=== PATIENT | female | born 1965 | race Caucasian/White ===

== ENCOUNTER → 2019-06-11 | Day surgery (SDC) | payer OTHER ==
[~2019-06-11] MED LIST: ACETAMINOPHEN 1000 MG/100 ML 100 ML IV ONE; DEXAMETHASONE SOD PHOS INJ 4 MG/ML VIAL ONE; FENTANYL CITRATE/PF 100MCG/2 ML INJ ONE; GABAPENTIN300 MG PO; KETOROLAC TROMETHAMINE 30 MG/ML VIAL ONE; LAMOTRIGINE25 MG PO; LIDOCAINE HCL 2% LOCAL INJ 5 ML SDV VIAL INJ ONE; MEPERIDINE HCL INJ 25 MG/ML VIAL ONE; MIDAZOLAM HCL 2 MG/2 ML VIAL ONE; ONDANSETRON HCL INJ 2MG/ML 2ML 2 MG/ML VIAL ONE; PHENYLEPHRINE HCL 1% 10 MG/ML VIAL ONE; PROPOFOL IV EMULSION 10 MG/ML 20 ML VIAL ONE; SERTRALINE HCL50 MG PO; SEVOFLURANE INHAL SOLN 250 ML PEN BTL ONE; SILVER NITRATE SWABS ONE
[2019-06-11 12:57] LABS: BASOPHILS # (AUTO) 0.1 (0.0-0.1); BASOPHILS % 0.6 % (0.0-1.0); EOSINOPHILS # (AUTO) 0.1 (0.0-0.4); EOSINOPHILS % 1.2 % (0.0-6.0); HEMATOCRIT 40.7 % (34.2-44.1); HEMOGLOBIN 13.3 g/dL (12.0-16.0); LYMPHOCYTES # (AUTO) 3.2 (1.0-3.2); LYMPHOCYTES % 34.4 % (18.0-39.1); MEAN CORPUSCULAR HEMOGLOBIN 29.2 pg (28-32); MEAN CORPUSCULAR HGB CONC 32.7 g/dL (31-35); MEAN CORPUSCULAR VOLUME 89.3 fL (81-99); MONOCYTES # (AUTO) 0.8 (0.2-0.8); MONOCYTES % 8.1 % (4.4-11.3); NEUTROPHILS # (AUTO) 5.1 (2.1-6.9); NEUTROPHILS % 55.5 % (38.7-80.0); PLATELET COUNT 375 x10e3/uL (140-360); RED BLOOD COUNT 4.56 x10e6/uL (3.6-5.1); RED CELL DISTRIBUTION WIDTH 12.7 % (11.7-14.4)
[2019-06-11 13:12] LABS: BILIRUBIN,URINE NEGATIVE (NEGATIVE); CLARITY,URINE SL CLOUDY (CLEAR); COLOR,URINE YELLOW (YELLOW); KETONES,URINE NEGATIVE (NEGATIVE); LEUKOCYTE ESTERASE ,URINE NEGATIVE (NEGATIVE); NITRITE,URINE NEGATIVE (NEGATIVE); PROTEIN,URINE DIPSTICK NEGATIVE (NEGATIVE); URINE UROBILINOGEN 0.2 mg/dL (0.2 - 1)
[2019-06-11 16:05] VITALS: BP 118/75
--- NOTE | 2019-06-11 21:40 | Operative Report ---
DATE OF PROCEDURE: 06/11/2019 SURGEON: Sukh Rodriguez MD PREOPERATIVE DIAGNOSES: Postmenopausal bleeding, rule out endometrial cancer, failed office endometrial biopsy. POSTOPERATIVE DIAGNOSES: Postmenopausal bleeding, rule out endometrial cancer, failed office endometrial biopsy. TITLE OF PROCEDURE: Hysteroscopy, dilatation and curettage. ANESTHESIA: General with Dr. Barker and Radha, title i assistant. INDICATION FOR THE OPERATION: The patient is a 53-year-old 3, para 0-0-3-0 with postmenopausal bleeding with polyp noted and symptoms of cramping and fatigue. Office endometrial biopsy was unsuccessful due to cervical stenosis. She is therefore taken to the operating room at this time for D and C, hysteroscopy to rule out endometrial cancer and to excise a possible endometrial polyp. FINDINGS OF SURGERY: There was a polyp versus neoplastic lesion on the anterior surface of the endometrial cavity. This was excised with curettage. The left ostium was not easily seen. The right ostium was not well seen, consistent with her history of salpingectomy from ectopic . She had bleeding after the curettage, which responded to suction curettage and packing. DESCRIPTION OF THE PROCEDURE: The patient was taken to the operating room, placed on the table in supine position. General anesthesia was administered. The patient was placed in the lithotomy position. The perineum was prepared and draped in the usual sterile manner. The bladder was drained by in and out catheterization. Pelvic exam revealed an 8-week size nodular uterus with no adnexal masses. A weighted speculum was placed in posterior vaginal wall. Then with the aid of a right angle retractor, the anterior lip of the cervix was grasped with single-tooth tenaculum. The endocervical canal was noted to be stenotic and it was dilated using Cordova dilators up to a #25. Then, hysteroscope was placed and we inspected the endometrial cavity, noted the ostium on the left side could not, quite get to see the ostium on the right side, and of note, there was a lesion on the anterior surface of the endometrium, which was either endometrial polyp versus neoplastic lesion. The rest of the endometrium was relatively atrophic. We tried to visualize the right ostium, but were not able to see it well. This was perhaps due to her history of ectopic with the tube excised completely. The left ostium was well seen. At this point, the hysteroscope was removed and we proceeded with curettage. Curettage was continued until I felt the entire polyp was removed and the uterine cry was felt on all four mack of the uterus. Curettage was continued, however, the patient's bleeding was significant and did not respond to further sharp curettage. Suction curettage was performed with a #8 suction curette. All the tissue was obtained and sent to pathology for definitive diagnosis. After the suction curettage, the bleeding decreased, however, did not stop completely, so the decision was made to pack the vagina in order to decrease the bleeding. This did appear to be successful after waiting for 10-15 minutes and noticed no significant heavy bleeding, just light spotting and at this point, everything except for the vaginal packing was removed from the vagina and the patient was stable. The only complication was bleeding after curettage, which responded to suction curettage. Estimated blood loss was 100 mL. The patient tolerated the procedure well, was transferred from the operating room to recovery room in stable condition. MD CHRIS Ugarte/EMILY /[id number]
== END | disposition home or self-care (01) ==
LOC: OR 11:59
PROVIDERS: ATTEND Obstetrics & Gynecology
DX: N95.0 Postmenopausal bleeding (principal); D26.1 Other benign neoplasm of corpus uteri; N94.10 Unspecified dyspareunia; R10.2 Pelvic and perineal pain; Z01.812 Encounter for preprocedural laboratory examination
CPT/HCPCS: 36415; 58558; 81003; 85025; 88305; 88342; 93005; J0131; J1100; J1885; J2001; J2175; J2250; J2370; J2405; J2704; J3010

== ENCOUNTER 2019-07-08 05:17 | Observation (INO) | payer OTHER ==
[2019-07-07 12:45] LABS: BASOPHILS # (AUTO) 0.1 (0.0-0.1); BASOPHILS % 0.7 % (0.0-1.0); EOSINOPHILS # (AUTO) 0.1 (0.0-0.4); EOSINOPHILS % 1.1 % (0.0-6.0); HEMATOCRIT 36.5 % (34.2-44.1); HEMOGLOBIN 11.5 g/dL (12.0-16.0); LYMPHOCYTES # (AUTO) 2.4 (1.0-3.2); LYMPHOCYTES % 32.5 % (18.0-39.1); MEAN CORPUSCULAR HEMOGLOBIN 28.6 pg (28-32); MEAN CORPUSCULAR HGB CONC 31.5 g/dL (31-35); MEAN CORPUSCULAR VOLUME 90.8 fL (81-99); MONOCYTES # (AUTO) 0.6 (0.2-0.8); MONOCYTES % 8.2 % (4.4-11.3); NEUTROPHILS # (AUTO) 4.3 (2.1-6.9); NEUTROPHILS % 57.1 % (38.7-80.0); PLATELET COUNT 386 x10e3/uL (140-360); RED BLOOD COUNT 4.02 x10e6/uL (3.6-5.1); RED CELL DISTRIBUTION WIDTH 12.8 % (11.7-14.4)
[2019-07-07 13:04] LABS: ALANINE AMINOTRANSFERASE 90 IU/L (0-55); ALBUMIN 3.6 g/dL (3.5-5.0); ALKALINE PHOSPHATASE 112 IU/L (40-150); BLOOD UREA NITROGEN 15 mg/dL (7-26); BUN/CREATININE RATIO 19 (6-25); CALCIUM 9.4 mg/dL (8.4-10.2); CARBON DIOXIDE 25 mmol/L (22-29); CHLORIDE 108 mmol/L (98-107); EST GLOMERULAR FILTRATION RATE > 60 ML/MIN (60-); GLUCOSE 94 mg/dL (74-118); SODIUM 141 mmol/L (136-145)
[2019-07-07 13:44] LABS: BILIRUBIN,URINE NEGATIVE (NEGATIVE); CLARITY,URINE HAZY (CLEAR); COLOR,URINE YELLOW (YELLOW); KETONES,URINE NEGATIVE (NEGATIVE); LEUKOCYTE ESTERASE ,URINE NEGATIVE (NEGATIVE); NITRITE,URINE NEGATIVE (NEGATIVE); PROTEIN,URINE DIPSTICK NEGATIVE (NEGATIVE); URINE UROBILINOGEN 0.2 mg/dL (0.2 - 1)
[~2019-07-08] VITALS: Ht 162.6 cm; Wt 81.7 kg
[~2019-07-08 05:17] MED LIST changes: -ACETAMINOPHEN 1000 MG/100 ML 100 ML IV ONE; -DEXAMETHASONE SOD PHOS INJ 4 MG/ML VIAL ONE; -FENTANYL CITRATE/PF 100MCG/2 ML INJ ONE; -KETOROLAC TROMETHAMINE 30 MG/ML VIAL ONE; -LIDOCAINE HCL 2% LOCAL INJ 5 ML SDV VIAL INJ ONE; -MEPERIDINE HCL INJ 25 MG/ML VIAL ONE; -MIDAZOLAM HCL 2 MG/2 ML VIAL ONE; -ONDANSETRON HCL INJ 2MG/ML 2ML 2 MG/ML VIAL ONE; -PHENYLEPHRINE HCL 1% 10 MG/ML VIAL ONE; -PROPOFOL IV EMULSION 10 MG/ML 20 ML VIAL ONE; -SEVOFLURANE INHAL SOLN 250 ML PEN BTL ONE; -SILVER NITRATE SWABS ONE
[2019-07-08] MEDS ORDERED: CEFAZOLIN SOD 1 GM/NS 50ML 100 ML IV ONE (05:44)
[2019-07-08] MEDS ORDERED: BUPIVACAINE 0.25%/EPI 30ML SDV INJ ONE (06:41)
[2019-07-08] MEDS ORDERED: ESTROGENS CONJUGATED VAGINAL CR 45 GM TUBE PV ONE (06:41)
[2019-07-08] MEDS: LACTATED RINGER'S 1,000 ML IV SCH ×3 (09:41→23:00)
[2019-07-08] MEDS ORDERED: DOCUSATE SODIUM 100 MG CAP PO PRN (09:45)
[2019-07-08] MEDS ORDERED: ONDANSETRON HCL INJ 2MG/ML 2ML 2 MG/ML VIAL IV PRN (09:45)
[2019-07-08] MEDS ORDERED: BISACODYL 10 MG SUPP PR PRN (09:45)
[2019-07-08] MEDS ORDERED: DIPHENHYDRAMINE HCL 25 MG CAP PO PRN (09:45)
[2019-07-08] MEDS ORDERED: HYDROMORPHONE 1MG/1ML INJ IV PRN (09:45)
[2019-07-08] MEDS ORDERED: ACETAMINOPHEN 325 MG TAB PO PRN (09:45)
[2019-07-08] MEDS ORDERED: ACETAMINOPHEN 1000 MG/100 ML IV ONE (09:47)
[2019-07-08] MEDS ORDERED: DEXAMETHASONE SOD PHOS INJ 4 MG/ML VIAL ONE (09:47)
[2019-07-08] MEDS ORDERED: LIDOCAINE HCL 2% LOCAL INJ 5 ML SDV VIAL INJ ONE (09:47)
[2019-07-08] MEDS ORDERED: PROPOFOL IV EMULSION 10 MG/ML 20 ML VIAL ONE (09:47)
[2019-07-08] MEDS ORDERED: SEVOFLURANE INHAL SOLN 250 ML PEN BTL ONE (09:47)
[2019-07-08] MEDS ORDERED: ROCURONIUM BROMIDE 10 MG/ML 5ML VIAL ONE (09:47)
[2019-07-08] MEDS ORDERED: ONDANSETRON HCL INJ 2MG/ML 2ML 2 MG/ML VIAL ONE ×2 (09:47→09:48)
[2019-07-08] MEDS ORDERED: MEPERIDINE HCL INJ 25 MG/ML VIAL ONE (10:00)
[2019-07-08] MEDS ORDERED: PROMETHAZINE HCL (IM) 25 MG/ML VIAL ONE (10:01)
[2019-07-08] MEDS ORDERED: METOCLOPRAMIDE HCL 10 MG/2ML VIAL ONE (10:47)
--- NOTE | 2019-07-08 11:00 | NUR ---
PT TO THE FLOOR FROM PACU. VITALS WNL. PT DENIES NEEDS AT THIS TIME.
[2019-07-08 11:30] VITALS: BP 117/72
[2019-07-08] MEDS: KETOROLAC TROMETHAMINE 30 MG/ML VIAL IV SCH ×2 (11:52→18:02)
[2019-07-08 12:18] VITALS: BP 138/86
[2019-07-08] MEDS ORDERED: CEFAZOLIN SOD 1 GM VIAL IV SCH (14:00)
[2019-07-08] MEDS: SIMETHICONE 80 MG CHEW PO SCH ×3 (14:19→20:50)
[2019-07-08] MEDS: CEFAZOLIN SOD 2 GM/D5W 50ML 50 ML IV SCH ×2 (14:20→21:30)
[2019-07-08 16:13] VITALS: BP 124/66
--- NOTE | 2019-07-08 16:18 | Operative Report ---
DATE OF PROCEDURE: 07/08/2019 SURGEON: Sukh Rodriguez MD PREOPERATIVE DIAGNOSIS: Complex endometrial hyperplasia with atypia. POSTOPERATIVE DIAGNOSES: Complex endometrial hyperplasia with atypia, pending pathology and massive omental adhesions. TITLE OF PROCEDURE: Total laparoscopic hysterectomy, bilateral oophorectomy, and lysis of adhesions. INSTRUCTOR LOOPING: Ugo Farley MD. ANESTHESIA: General with Rivera Ashby MD. INDICATIONS FOR THE OPERATION: The patient is a 53-year-old 3, para 0-0-3-0, with last menstrual period at age 50, who presented with postmenopausal bleeding. A D and C was done, which showed complex endometrial hyperplasia with atypia. She is therefore taken to the operating room at this time for laparoscopic hysterectomy. Secondary to the complex hyperplasia with atypia and very high risk for endometrial cancer, she does not have a hysterectomy. She is status post two ectopic pregnancies with laparotomy, so adhesions are anticipated prior to the surgery. FINDINGS OF SURGERY: There were massive adhesions of omentum to anterior abdominal wall, which were lysed laparoscopically. The ovaries were within normal limits. The uterus was 8-10 week size and mobile. There were few filmy adhesions to the uterus, but these were easily lysed. DESCRIPTION OF PROCEDURE: The patient was taken to the operating room, placed on the table in supine position. General anesthesia was administered. The patient was placed in the lithotomy position. The perineum was prepared and draped in the usual sterile manner. A Browning catheter was placed in the bladder for constant drainage. Pelvic exam revealed an 8-10 week size mobile uterus and no adnexal masses. A weighted speculum was placed in a posterior vaginal wall. Then with the aid of a right angle retractor, the anterior lip of the cervix was grasped with single-toothed tenaculum. Then, a medium size VCare cup was placed on the cervix with the tenaculum being removed. The uterus had been sounded to 7 cm. The balloon was placed into the uterus and inflated. The manipulator seem to be working very well and then colpotomy seal was placed over the manipulation device, inflated with 60 mL of saline, and then we proceeded to the laparoscopy. The spar machine operator changed gloves. A small incision was made just inferior to the umbilicus in the midline. The Veress needle was inserted through the incision into the peritoneal cavity. Pneumoperitoneum was created by insufflation of 4 L of carbon dioxide gas and a filling pressure of 8-10 mmHg. The Veress needle was removed and the trocar was inserted through the incision into the peritoneal cavity. The laparoscope was placed with confirmation that the peritoneal cavity had been entered. However, there were massive adhesions in the lower anterior abdominal wall and therefore two trocars were placed on the right and left side approximately at the level of the umbilicus under direct visualization by laparoscopy. At this point, we proceeded to lyse adhesions. The adhesions were taken down in steps. Being careful to stay away from the bowel and as close as possible to the anterior abdominal wall. The LigaSure instrument was used to coagulate, cut, and free the adhesions from the anterior abdominal wall. This took approximately 30 minutes. After this was done, there were few filmy adhesions to the uterus, especially on the left side. These were lysed and then the uterus was free. Then on the right side, the ovary was grasped and the infundibulopelvic ligament was visualized and the LigaSure instrument was placed over it as close to the ovary as possible. The LigaSure was fired and it was coagulated and cut. The ovary was free from the pelvic sidewall. Then coming along the utero-ovarian ligament, replace the LigaSure, coagulating and cutting, and freeing it up. At this point, the round ligament on the right side was clamped, coagulated, and cut and then the anterior peritoneum was opened from the right side to the midline and then the uterine vessels were skeletonized and then the uterine artery was clamped and coagulated multiple times, and then cut with good hemostasis noted. Then the uterosacral ligament on the right side was clamped, coagulated, and cut to free up the uterus on this side. Then, we proceeded to the left side where the ovary was adherent to the sidewall and these adhesions were lysed and then the infundibulopelvic ligament was clamped with the LigaSure, coagulated, and cut. There was good hemostasis and evidence of the ovarian vessel on that side. At this point, the utero-ovarian ligament was clamped, coagulated, and cut and the ovary was freed from the pelvic sidewall and attached to the uterus. At this point, the round ligament was clamped, coagulated, and cut with the LigaSure and then we opened the anterior peritoneum on the left side, going from the round ligament, and steps around to the midline where the right side had been opened already. At this point, the VCare cup was used to push the bladder away from the uterus. At this point, the uterine vessels on the left side were skeletonized. The LigaSure was placed over the uterine vessels, clamping, coagulating, and cutting. There was good hemostasis noted on the left side. At this point, the uterosacral ligament on the left side was taken. At this point, an L hook was used to cut the uterus away from the attachments on all sides. This was done carefully cutting only inside the VCare cup to ensure that no vital organs suffer any damage. At this point, we had to do some more freeing up the attachments of the bladder to the uterus. This dissection was carefully done and then the uterus was cut away anteriorly as well and only attached to the VCare cup. Then, the uterus was easily removed and an occlusive device was placed in the vagina to help maintain the pneumoperitoneum and then the vaginal cuff was closed with [id number] stitches of 2-0 Vicryl suture using the laparoscopic suture device. Then, two more stitches were placed in the middle of the vaginal cuff and there was noted to be good hemostasis on the cuff. We then irrigated multiple times and suctioned. There was no evidence of any bleeding. At this point, Dr. Farley performed the cystoscopy. First, he inflated the bladder with fluid, which we watched laparoscopically and there was no evidence of any bladder leakage and then he used the laparoscope as a cystoscopy device and examine the bladder. There was no evidence of any damage to the bladder and both ureteral orifices were noted and good flow of urine was noted out of each ureteral orifice. The ureteral jets were easily identified fairly quickly. At this point, the procedure was deemed terminated. The cystoscope was removed. A Browning catheter was placed in the bladder for constant drainage and then in the meantime, I closed the skin incisions using inverted stitches of 4-0 Monocryl suture thus completing the procedure, except for all the air and instruments were removed from the abdomen and the skin incisions were closed with these inverted stitches. After all the air was removed, then Steri-Strips and Band-Aids were placed over the three incision sites. There were no complications noted. Estimated blood losswas 100 mL. The patient tolerated the procedure well and was transferred from the operating room to the recovery room in stable condition. MD CHRIS Ugarte/EMILY /[id number]
--- NOTE | 2019-07-08 16:28 | Operative Report ---
DATE OF PROCEDURE: SURGEON: Sukh Rodriguez MD ADDENDUM: PROCEDURE: Total laparoscopic hysterectomy, bilateral oophorectomy, and lysis of adhesions. Dr. Farley assisted with retraction, hemostasis, visualization, suturing, irrigation, and suctioning. Sukh Rodriguez MD [facility] /[id number]
--- NOTE | 2019-07-08 17:45 | NUR ---
RUBI REMOVED AT THIS TIME. TIP INTACT, PT TOLERATED 1300 ML OF LIGHT YELLOW CLEAR URINE.
--- NOTE | 2019-07-08 19:15 | NUR ---
Patient visited in room during nursing rounds. Patient alert and oriented x3. No distress or discomfort noted. S/P Lap total hysterectomy on 07/08/19 with 3 trocar sites on abd with steri strips. Pt on IVF (LR at 125ml/hr) with scheduled IV antibiotic. Call [facility] within reach.
[2019-07-08 19:25] VITALS: BP 117/62
[2019-07-08] MEDS ORDERED: MIDAZOLAM HCL 2 MG/2 ML VIAL ONE (20:03)
[2019-07-08] MEDS ORDERED: FENTANYL CITRATE/PF 100MCG/2 ML INJ ONE (20:03)
--- NOTE | 2019-07-08 21:29 | NUR ---
Dr. Rodriguez came and visited pt. MD aware of pt condition.
[2019-07-09 00:16] VITALS: BP 113/56
[2019-07-09 04:36] VITALS: BP 102/57
[2019-07-09 06:20] LABS: BASOPHILS % 0.4 % (0.0-1.0); EOSINOPHILS % 0.4 % (0.0-6.0); HEMATOCRIT 30.7 % (34.2-44.1); HEMOGLOBIN 9.6 g/dL (12.0-16.0); LYMPHOCYTES # (AUTO) 3.1 (1.0-3.2); LYMPHOCYTES % 33.8 % (18.0-39.1); MEAN CORPUSCULAR HEMOGLOBIN 28.6 pg (28-32); MEAN CORPUSCULAR HGB CONC 31.3 g/dL (31-35); MEAN CORPUSCULAR VOLUME 91.4 fL (81-99); MONOCYTES # (AUTO) 0.8 (0.2-0.8); MONOCYTES % 8.8 % (4.4-11.3); NEUTROPHILS # (AUTO) 5.1 (2.1-6.9); NEUTROPHILS % 56.4 % (38.7-80.0); PLATELET COUNT 289 x10e3/uL (140-360); RED BLOOD COUNT 3.36 x10e6/uL (3.6-5.1); RED CELL DISTRIBUTION WIDTH 13.2 % (11.7-14.4)
[2019-07-09] MEDS: KETOROLAC TROMETHAMINE 30 MG/ML VIAL IV SCH ×2 (06:30)
[2019-07-09] MEDS: LACTATED RINGER'S 1,000 ML IV SCH (06:30)
[2019-07-09] MEDS: CEFAZOLIN SOD 2 GM/D5W 50ML 50 ML IV SCH (06:30)
[2019-07-09 06:39] LABS: ALANINE AMINOTRANSFERASE 39 IU/L (0-55); ALBUMIN 2.8 g/dL (3.5-5.0); ALKALINE PHOSPHATASE 83 IU/L (40-150); ANION GAP 10.3 mmol/L (8-16); BLOOD UREA NITROGEN 11 mg/dL (7-26); BUN/CREATININE RATIO 14 (6-25); CALCIUM 8.6 mg/dL (8.4-10.2); CARBON DIOXIDE 26 mmol/L (22-29); CHLORIDE 110 mmol/L (98-107); CREATININE, SERUM 0.78 mg/dL (0.57-1.11); EST GLOMERULAR FILTRATION RATE > 60 ML/MIN (60-); GLUCOSE 96 mg/dL (74-118); POTASSIUM 4.3 mmol/L (3.5-5.1); SODIUM 142 mmol/L (136-145)
--- NOTE | 2019-07-09 07:00 | NUR ---
BEDSIDE SHIFT REPORT FROM NIGHT RN. PT DENIES NEEDS AT THIS TIME.
[2019-07-09 08:22] VITALS: BP 116/66
[2019-07-09] MEDS: SERTRALINE HCL 50 MG TAB PO SCH ×2 (08:48→09:00)
[2019-07-09] MEDS: SIMETHICONE 80 MG CHEW PO SCH (08:48)
[2019-07-09] MEDS: GABAPENTIN 300 MG CAP PO SCH ×2 (08:48→09:00)
[2019-07-09] MEDS: LAMOTRIGINE 25 MG TAB PO SCH ×2 (08:48→09:00)
[2019-07-09] MEDS ORDERED: IBUPROFEN400 MG PO (09:31)
[2019-07-09] MEDS ORDERED: TYLENOL WITH C1 EACH PO (09:31)
== END 2019-07-09 10:37 | disposition home or self-care (01) ==
LOC: OR 05:17 → PACU V 09:46 → MED/SURG 11:03
PROVIDERS: ADMIT Obstetrics & Gynecology; ATTEND Obstetrics & Gynecology
DX: N85.02 Endometrial intraepithelial neoplasia [EIN] (principal); Z01.812 Encounter for preprocedural laboratory examination; F31.9 Bipolar disorder, unspecified; F32.9 Major depressive disorder, single episode, unspecified; N73.6 Female pelvic peritoneal adhesions (postinfective)
CPT/HCPCS: 36415 ×2; 58571; 58660; 80053 ×2; 81003; 84702; 85025 ×2; 86850; 86900; 88309; G0378 ×2; J0131; J0690 ×2; J1100; J1885 ×2; J2001; J2175; J2250; J2405; J2550; J2704; J2765; J3010; J7121 ×2; 88307